=== PATIENT | male | born 1960 | race Two or more races ===

== ENCOUNTER → 2024-11-27 | Outpatient (CLI) | payer BC, SELFPAY ==
--- NOTE | 2024-11-27 10:30 | XR_ITS ---
Examination: CT chest, without intravenous contrast. Sagittal and coronal 2-D reconstructions. Exam date and time: November 27, 2024 1014 hours COMPARISON: April 20, 2024 INDICATIONS: Smoking history years, mass in the superior segment left lower lobe 51 x [address] chest April 20, 2024 CTDI:vol (mGy) 16.5 DLP: (mGycm) 681 Technique: Multiple 3.0 mm axial sections of the chest to been obtained. Bone and lung density settings are obtained. Sagittal and coronal 2-D reconstructions have been obtained. Low dose protocols were performed. One or more of the following dose reduction techniques were used; automated exposure control, adjustment of the mA and/or KV according to patient size, use of iterative reconstruction technique. Findings: Thoracic aortic calcification no aneurysmal dilatation Pulmonary artery segments are not enlarged No paratracheal tracheobronchial or bronchopulmonary adenopathy 4.6 x 3.1 cm pulmonary mass superior segment left lower lobe 2 mm pulmonary nodule right upper lobe image 109 No lobar pneumonia No visualized liver or splenic lesion Contracted gallbladder 2 mm 1 mm upper pole right renal calculi IMPRESSION: Pulmonary mass superior segment left lower lobe measures 4.6 x 3.1 cm compared to 5.1 x 3[address] chest April 20, 2024
== END | disposition home or self-care (01) ==
PROVIDERS: PCP Internal Medicine; Referring Provider Internal Medicine; Visit Provider Internal Medicine
DX: Z12.2 Encounter for screening for malignant neoplasm of respiratory organs (principal); R91.1 Solitary pulmonary nodule; N20.0 Calculus of kidney; I70.0 Atherosclerosis of aorta
CPT/HCPCS: 71271

== ENCOUNTER → 2025-06-05 | Outpatient (CLI) | payer BC, SELFPAY ==
--- NOTE | 2025-06-05 09:15 | XR_ITS ---
Examinations: MRA brain without intravenous contrast. 3-D vascular reconstructions Date and time of exam: June 05, 2025, 0809 hours INDICATIONS: Right eye pain radiating to the right [employer]iscopalian bloody discharge from blowing nose 5 months, family history, mother brother cerebral aneurysm Technique: MRA brain images without contrast obtained, including 3-D postprocessing, vascular maximum intensity projection images Findings: Petrous juxtasellar supraclinoid portions internal carotid arteries fill M1 segments middle cerebral arteries middle cerebral artery trifurcation vessels, intracranial vertebral arteries basilar artery and posterior cerebral branches fill with no large vessel occlusions dissection or cerebral aneurysm IMPRESSION: No cerebral large vessel arterial occlusions, thrombus, dissection or cerebral aneurysm This examination does not provide the detail of a four-vessel cerebral angiogram
== END | disposition home or self-care (01) ==
LOC: SMRI 07:47
PROVIDERS: PCP Internal Medicine; Referring Provider Internal Medicine; Visit Provider Internal Medicine
DX: R51.9 Headache, unspecified (principal); Z82.49 Family history of ischemic heart disease and other diseases of the circulatory system
CPT/HCPCS: 70544